=== PATIENT | female | born 1965 | race Caucasian/White ===

== ENCOUNTER 2024-06-02 15:55 | Emergency (ER) | payer OTHER, SELFPAY ==
[2024-06-02 16:00] VITALS: BP 160/84; PULSE 98; RESP 16; TEMP 36.3; O2SAT 99; BMI 20.5
--- NOTE | 2024-06-02 16:33 | ED_ITS ---
HPI - Back Pain/Injury <Fabby Caal PA-C - Last Filed: 06/02/24 19:22> General Chief Complaint: Back Pain/Injury Stated Complaint: lower back px t-7 Time Seen by Provider: 06/02/24 16:29 Source: patient History of Present Illness HPI Narrative: 58-year-old woman with a history of complete hysterectomy at age 53 and ?tummy tuck? presents with concern for bilateral flank pain/low back pains for about the past week. Patient states that she has been feeling fatigued and generally a little unwell. Today she says she has had almost no appetite had a tiny bit of food for breakfast. She has been feeling nauseous intermittently today. She has had 4 episodes of very loose stools/diarrhea which is ?not normal for me?. She states she has had 2 previous kidney infections, the last 1 a few years ago she says she did not have any symptoms other than low back pain. She denies any fevers but has been feeling chills on and off this week. She states no one else in the home has had diarrhea. She does not believe she ate any suspect food. She does not believe she did anything that would have caused any back strain or muscle injury. She states ?this does not feel like a muscle problem?. She does believe that the pain she has been having this past week feels similar to her most recent kidney infection. She denies dysuria, urgency, frequency, fevers, vomiting or other symptoms. Related Data Previous Rx's Medication Instructions Recorded amoxicillin 875 mg-potassium 1 tab PO Q12H pyelopnephritis 10 06/02/24 clavulanate 125 mg tablet days #20 tabs Allergies Allergy/AdvReac Type Severity Reaction Status Date / Time No Known Drug Allergies Allergy Verified 06/02/24 16:49 Review of Systems <Fabby Cala PA-C - Last Filed: 06/02/24 19:22> Review of Systems Narrative: See HPI Patient History <Fabby Caal PA-C - Last Filed: 06/02/24 19:22> Medical History (Updated 06/02/24 @ 19:08 by Fabby Caal PA-C) Acute appendicitis without peritonitis Urinary tract infection Surgical History Status post laparoscopic supracervical hysterectomy (05/09/16) Status post endometrial ablation History of third molar tooth extraction Exam <Fabby Caal PA-C - Last Filed: 06/02/24 19:22> Narrative Exam Narrative: GENERAL: [58] year old patient appears stated age. Well-developed patient, in mild distress, tired appearing. HEAD: Atraumatic. Normocephalic. EYES: Pupils equal round and reactive. Extraocular motions intact. No scleral icterus. No injection or drainage. ENT: Nose without bleeding, purulent drainage. Throat without erythema, tonsillar hypertrophy or exudate. Airway patent. NECK: Trachea midline. Non tender CARDIOVASCULAR: Regular rate and rhythm heart rate 98 without murmurs, gallops, or rubs. RESPIRATORY: Clear to auscultation. Breath sounds equal bilaterally. No wheezes, rales, or rhonchi. GASTROINTESTINAL: Abdomen soft, there is McBurney's point tenderness. Generalized tenderness of the abdomen. There is negative pain with heel tap, negative Rovsing. Negative obturator sign. No notable suprapubic tenderness, nondistended. EXTREMITIES: No edema or joint tenderness. BACK: Nontender without deformity or crepitance. No flank tenderness. NEURO: AOx3. SKIN: No rash or erythema of visible areas Initial Vital Signs Initial Vital Signs: Vital Signs Temperature 97.4 F L 06/02/24 16:00 Pulse Rate 98 H 06/02/24 16:00 Respiratory Rate 16 06/02/24 16:00 Blood Pressure 160/84 H 06/02/24 16:00 Pulse Oximetry 99 06/02/24 16:00 Oxygen Delivery Method Room Air 06/02/24 16:00 <My Hines DO - Last Filed: 06/03/24 07:30> Initial Vital Signs Initial Vital Signs: Vital Signs Temperature 97.4 F L 06/02/24 16:00 Pulse Rate 98 H 06/02/24 16:00 Respiratory Rate 16 06/02/24 16:00 Blood Pressure 160/84 H 06/02/24 16:00 Pulse Oximetry 99 06/02/24 16:00 Oxygen Delivery Method Room Air 06/02/24 16:00 Course <Fabby Caal PA-C - Last Filed: 06/02/24 19:22> Orders Ordered: Discontinued Medications Amoxicillin/Clavulanate Potassium (Amoxicillin/Clav 875/125 Mg) 1 tab PO NOW ONE Stop: 06/02/24 19:09 Last Admin: 06/02/24 19:12 Dose: 1 tab Documented By: JASWANT Ceftriaxone Sodium 1,000 mg/ (Sodium Chloride) 100 mls @ 200 mls/hr IV NOW ONE Stop: 06/02/24 18:15 Last Infusion: 06/02/24 19:02 Dose: Infused Documented By: Admin: 06/02/24 18:22 Dose: 200 mls/hr Documented By: JASWANT Sodium Chloride (Normal Saline 0.9%) 1,000 mls @ 500 mls/hr IV BOLUS ONE Stop: 06/02/24 20:14 Last Admin: 06/02/24 18:23 Dose: Not Given Documented By: JASWANT Sodium Chloride (Normal Saline 0.9%) 500 mls @ 1,000 mls/hr IV BOLUS ONE Stop: 06/02/24 18:51 Last Infusion: 06/02/24 19:02 Dose: Infused Documented By: Admin: 06/02/24 18:24 Dose: 1,000 mls/hr Documented By: JASWANT Consultations Consultation #1: Consulted Dr. Cisse, on-call general surgeon about this patient, he will come see her shortly. Advises do not start additional antibiotics ceftriaxone should be appropriate for both pyelonephritis and appendicitis. Recommends contacting hospitalist regarding admission. [id number] Cunningham who feels if the patient needs to come in the should come in under surgery. [address] Cisse, in person about this patient he states after reviewing her CT scan he actually does not feel this is a current appendicitis. Does note that she has some fat stranding and changes around her kidneys that are consistent with a kidney infection. Particularly on the right. 185 Vital Signs Vital signs: Vital Signs - 8 hr 06/02/24 16:00 Temperature 97.4 F L Pulse Rate 98 H Respiratory Rate 16 Blood Pressure 160/84 H Pulse Oximetry 99 Oxygen Delivery Method Room Air <My Hines, - Last Filed: 06/03/24 07:30> Orders Ordered: Discontinued Medications Amoxicillin/Clavulanate Potassium (Amoxicillin/Clav 875/125 Mg) 1 tab PO NOW ONE Stop: 06/02/24 19:09 Last Admin: 06/02/24 19:12 Dose: 1 tab Documented By: JASWANT Ceftriaxone Sodium 1,000 mg/ (Sodium Chloride) 100 mls @ 200 mls/hr IV NOW ONE Stop: 06/02/24 18:15 Last Infusion: 06/02/24 19:02 Dose: Infused Documented By: Admin: 06/02/24 18:22 Dose: 200 mls/hr Documented By: JASWANT Sodium Chloride (Normal Saline 0.9%) 1,000 mls @ 500 mls/hr IV BOLUS ONE Stop: 06/02/24 20:14 Last Admin: 06/02/24 18:23 Dose: Not Given Documented By: JASWANT Sodium Chloride (Normal Saline 0.9%) 500 mls @ 1,000 mls/hr IV BOLUS ONE Stop: 06/02/24 18:51 Last Infusion: 06/02/24 19:02 Dose: Infused Documented By: Admin: 06/02/24 18:24 Dose: 1,000 mls/hr Documented By: JASWANT Vital Signs Vital signs: Vital Signs - 8 hr 06/02/24 16:00 Temperature 97.4 F L Pulse Rate 98 H Respiratory Rate 16 Blood Pressure 160/84 H Pulse Oximetry 99 Oxygen Delivery Method Room Air MDM - Back Pain/Injury <Fabby Caal PA-C - Last Filed: 06/02/24 19:22> Differential Diagnosis Differential diagnosis: Likely pyelonephritis and other (UTI, appendicitis, colitis) Medical Records Attestation: I reviewed the patient's medical records. Lab Data Attestation: I reviewed the patient's lab results. 06/02/24 17:02 06/02/24 17:02 Labs: Lab Results 06/02/24 06/02/24 Range/Units 16:10 17:02 WBC 12.0 H (4.5-11.0) X10^3/uL RBC 3.98 L (4.0-5.2) X10^6/uL Hgb 12.0 (12.0-16.0) g/dL Hct 36.5 (36-46) % MCV 91.6 (80-100) fL MCH 30.2 (26-34) PG MCHC 33.0 (30-36) % RDW 13.7 (11.6-14.8) % Plt Count 310 (150-400) X10^3/uL Neut % (Auto) 79.4 H (50-75) % Lymph % (Auto) 13.6 L (25-40) % [place] % (Auto) 6.0 (3-14) % Eos % (Auto) 0.6 L (2-4) % Baso % (Auto) 0.4 (0-2) % Neut # (Auto) 9500 H (5545-5145) /uL Lymph # (Auto) 1600 (8172-7867) /uL [place] # (Auto) 700 (0-900) /uL Eos # (Auto) 100 (0-450) /uL Baso # (Auto) 100 (0-100) /uL Sodium 138 (137-145) mmol/L Potassium 3.6 (3.4-5.1) mmol/L Chloride 106 (98-107) mmol/L Carbon Dioxide 24 (22-32) mmol/L BUN 17 (7-17) mg/dL Creatinine 0.99 (0.52-1.04) mg/dL Estimated GFR > 60 (>60) mL/min BUN/Creatinine Ratio 17.2 (6-22) Glucose 89 (70-100) mg/dL Calcium 9.6 (8.4-10.2) mg/dL Total Bilirubin 0.6 (0.2-1.3) mg/dL AST 30 (14-36) IU/L ALT 19 (<35) IU/L Alkaline Phosphatase 51 (38-126) U/L Total Protein 7.0 (6.3-8.2) g/dL Albumin 4.3 (3.5-5.0) g/dL Globulin 2.7 (1.7-4.1) g/dL Albumin/Globulin Ratio 1.6 (1.0-2.8) Lipase 154 (23-300) U/L Urine RBC None seen (0-5/HPF) Urine WBC 5-10/hpf H (0-5/HPF) Ur Squamous Epith Cells None seen (0-5/HPF) Urine Bacteria Many (>30) H (None) Ur Culture Indicated? Specimen cultured Vol Urine Centrifuged 10ml (spun) Urine Dip Bedside Urine Glucose Negative Bedside Urine Bilirubin - Negative Bedside Urine Ketone ++ 40 Urine Specific [place] 1.010 Bedside Urine Occult Blood +/- Bedside Urine pH 6.5 Bedside Urine Protein +/- 15 Bedside Urine Urobilinogen - Negative Bedside Urine Nitrite - Negative Bedside Urine Leukocytes + [address] scan - abdomen/pelvis: My Impression: Agree with Radiology interpretation Radiologist's Impression: [address] [address] [address] Scan Report Signed Patient: Chary Rockwell MR#: [id number] : 1965 Acct:[id number] Age/Sex: 58 / F Date of Service: 06/02/24 Loc: ED Accession Number: [id number] Procedure: CT abdomen pelvis w con Ordering Provider: Fabby Caal PA-C PROCEDURE: CT ABDOMEN PELVIS W CON INDICATIONS: RLQ tenderness+Diarrhea/nausea hx complete hyster TECHNIQUE: After the administration of intravenous contrast, axial sections acquired from the lung bases to the pubic symphysis. Coronal and sagittal reformats were performed. For radiation dose reduction, the following was used: automated exposure control, adjustment of mA and/or kV according to patient size. COMPARISON: None. FINDINGS: Image quality: Diagnostic Lower chest: Unremarkable lung bases, normal heart size. Liver: Unremarkable Gallbladder and biliary system: Unremarkable, nondilated Pancreas: No ductal dilation Spleen: Nonenlarged Adrenals: No discrete nodules Kidneys: No solid mass. No hydronephrosis. Vessels and lymph nodes: The main portal vein is patent. No abdominal aortic aneurysm. No pathologic lymph nodes by size criteria Bowel and peritoneum: No evidence of small bowel obstruction or pathologic ascites. No drainable abscess is seen. [id number] diffuse distal colonic submucosal edema and wall thickening. The appendix measures 7-8 mm, with a small stone in the mid aspect (3/43). Body wall: Tiny fat containing umbilical hernia Pelvis: Bladder is unremarkable. Uterus is absent. Bones: There are degenerative changes. IMPRESSION: The appendix is borderline dilated, possibly with mucosal hyperemia and a small stone in the mid aspect. Findings are equivocal for early appendicitis. [id number]-yr-[id number] distal colonic inflammatory changes likely colitis. Superimposed diverticula are seen. Correlate with age-appropriate colonoscopy results. No small bowel obstruction. Other findings above. Dictated by: Feng Cross M.D. on 06/02/2024 at 18:25 Approved by: Feng Cross M.D. on 06/02/2024 at 18:29 [facility] Narrative Medical decision making narrative: This is a 58-year-old woman with a history of previous pyelonephritis presenting with concern for flank pain bilaterally worse on the right for about a week as well as nausea, reduced appetite and multiple episodes of diarrhea today. Exam is notable for moderate bilateral flank tenderness/CVA tenderness as well as right lower quadrant tenderness that is pronounced on exam. No other findings suggestive of appendicitis except for the right lower quadrant tenderness. Labs obtained for further evaluation reveal mild leukocytosis, urine dip is suggestive of a UTI. Discussed options with the patient and she is agreeable to CT scan for further evaluation for possible appendicitis, given that she has had nausea reduced appetite and diarrhea today also with right lower quadrant pain. CT returns with borderline appendix thickening and a small stone present mid appendix, read as equivocal for early appendicitis. Also with tmsm-uc-pggwoqwe diffuse colonic wall thickening. Contacted general surgeon regarding this patient who agrees to come and evaluate her. Contacted the hospitalist as well. Ultimately the general surgeon reviewed CT results and feels this does not represent an appendicitis. Does feel that imaging is consistent with kidney infection given some inflammation/fat stranding seen around the kidneys particularly the right. Patient has been afebrile, with only a mild leukocytosis and in the absence of appendicitis reasonable to treat her as an outpatient for pyelonephritis. Patient received ceftriaxone 1 g IV in the emergency department today, will send her out on Augmentin for 7 days which should treat both pyelonephritis and if this is an very early appendicitis will likely improve this as well. She is advised to monitor for new or worsening symptoms such as fevers, persistent chills, persistent diarrhea, vomiting, new or worsening abdominal pain or other symptoms of concern and seek re-evaluation if these develop. Return precautions provided, follow-up plan discussed, all questions answered. <My Hines, DO - Last Filed: 06/03/24 07:30> Lab Data Labs: Lab Results 06/02/24 06/02/24 Range/Units 16:10 17:02 WBC 12.0 H (4.5-11.0) X10^3/uL RBC 3.98 L (4.0-5.2) X10^6/uL Hgb 12.0 (12.0-16.0) g/dL Hct 36.5 (36-46) % MCV 91.6 (80-100) fL MCH 30.2 (26-34) PG MCHC 33.0 (30-36) % RDW 13.7 (11.6-14.8) % Plt Count 310 (150-400) X10^3/uL Neut % (Auto) 79.4 H (50-75) % Lymph % (Auto) 13.6 L (25-40) % [place] % (Auto) 6.0 (3-14) % Eos % (Auto) 0.6 L (2-4) % Baso % (Auto) 0.4 (0-2) % Neut # (Auto) 9500 H (2340-0075) /uL Lymph # (Auto) 1600 (1829-7960) /uL [place] # (Auto) 700 (0-900) /uL Eos # (Auto) 100 (0-450) /uL Baso # (Auto) 100 (0-100) /uL Sodium 138 (137-145) mmol/L Potassium 3.6 (3.4-5.1) mmol/L Chloride 106 (98-107) mmol/L Carbon Dioxide 24 (22-32) mmol/L BUN 17 (7-17) mg/dL Creatinine 0.99 (0.52-1.04) mg/dL Estimated GFR > 60 (>60) mL/min BUN/Creatinine Ratio 17.2 (6-22) Glucose 89 (70-100) mg/dL Calcium 9.6 (8.4-10.2) mg/dL Total Bilirubin 0.6 (0.2-1.3) mg/dL AST 30 (14-36) IU/L ALT 19 (<35) IU/L Alkaline Phosphatase 51 (38-126) U/L Total Protein 7.0 (6.3-8.2) g/dL Albumin 4.3 (3.5-5.0) g/dL Globulin 2.7 (1.7-4.1) g/dL Albumin/Globulin Ratio 1.6 (1.0-2.8) Lipase 154 (23-300) U/L Urine RBC None seen (0-5/HPF) Urine WBC 5-10/hpf H (0-5/HPF) Ur Squamous Epith Cells None seen (0-5/HPF) Urine Bacteria Many (>30) H (None) Ur Culture Indicated? Specimen cultured Vol Urine Centrifuged 10ml (spun) Urine Dip Bedside Urine Glucose Negative Bedside Urine Bilirubin - Negative Bedside Urine Ketone ++ 40 Urine Specific [place] 1.010 Bedside Urine Occult Blood +/- Bedside Urine pH 6.5 Bedside Urine Protein +/- 15 Bedside Urine Urobilinogen - Negative Bedside Urine Nitrite - Negative Bedside Urine Leukocytes + 70 Esterase Discharge Plan Departure Patient Disposition: Home Clinical Impression: Pyelonephritis, Colitis Activity Restrictions/Additional Instructions: *You have been diagnosed with [pyelonephritis/complicated UTI, colitis + equivocal findings/borderline appendiceal thickening.] *What to do: *Please continue to take your regular medications as directed. [1 ] New medication prescriptions sent to your pharmacy: [ ] [ ] New medication written as a paper prescription [ ] No new medications given *Please follow up with your primary care provider in 2-3 days, call for an appointment. Let them know you were seen in the Emergency Department and that we ask that you be seen in follow up. We will electronically transmit a record of today's note if your PCP is in our system. You came in today with concern for possible kidney infection. Your urine was suspicious for UTI new did have some tenderness over her kidneys. You also had some tenderness over her right low abdomen concerning for possible appendicitis. We obtained labs and you had a mild increased white count. After discussion ultimately we did also obtain a CT scan to evaluate for appendicitis. Initially some concern for appendicitis based on the radiology read. However the general surgeon also evaluated the CT and you and feels that this is not represent a appendicitis. CT was consistent with pyelonephritis as certainly it was your history exam and urine is also suggestive of this. That said if you develop new symptoms over the next few days to week such as new worsening right lower quadrant abdominal pain or generalized abdominal pain, persistent diarrhea or nausea vomiting please make sure you get re-evaluated. You had ceftriaxone today in the emergency department which should jump start treatment for UTI and help if you do have a early appendicitis. Placing you on oral antibiotics Augmentin for 10 days please take these as prescribed. Recommend Tylenol and ibuprofen as needed for pain. You may want to eat yogurt or take probiotics while you are on antibiotics. I hope you feel better soon. *If you do not have a primary care provider please contact the [facility] Resource line at [phone]. They will ask some questions about your medical history and help get you set up with a doctor in the community. *Return to Emergency Department if you should have any new, worsening or concerning symptoms, such as [fever greater than 101 F, shaking chills, worsening pain, persistent vomiting or other bothersome symptoms] Prescriptions: New amoxicillin-pot clavulanate 875-125 mg tablet 1 tab PO Q12H 10 Days Qty: 20 0RF Stand Alone Forms: Patient Portal/API/Survey ED Sign-out <My Hines, - Last Filed: 06/03/24 07:30> Cosign ED Attending Cosignature Attestation: I was available for consultation.
[2024-06-02 17:04] LABS: Bacteria Urine Many (>30); Culture Indicated Urine Specimen Cultured; RBC Urine None Seen (0-5/HPF); Squamous Epithelial Cell Urine None Seen (0-5/HPF); Urine Volume 10mL (spun); WBC Urine 5-10/HPF (0-5/HPF)
[2024-06-02 17:12] LABS: Add Manual Diff / Slide Review NO; Basophils Absolute Auto 100 /uL (0-100); Basophils Percent Auto 0.4 % (0-2); Eosinophils Absolute Auto 100 /uL (0-450); Eosinophils Percent Auto 0.6 % (2-4); Hematocrit 36.5 % (36-46); Lymphocytes Absolute Auto 1600 /uL (1100-4500); Lymphocytes Percent Auto 13.6 % (25-40); Mean Corpuscular Hemoglobin 30.2 PG (26-34); Mean Corpuscular Volume 91.6 fL (80-100); Monocytes Absolute Auto 700 /uL (0-900); Neutrophils Absolute Auto 9500 /uL (1500-7000); Neutrophils Percent Auto 79.4 % (50-75); Platelet Count 310 X10^3/uL (150-400); Red Blood Cell Count 3.98 X10^6/uL (4.0-5.2); Red Cell Distribution Width 13.7 % (11.6-14.8)
[2024-06-02 17:22] LABS: Alanine Aminotransferase 19 IU/L (<35); Albumin 4.3 g/dL (3.5-5.0); Albumin Globulin Ratio 1.6 (1.0-2.8); Alkaline Phosphatase 51 U/L (38-126); Aspartate Aminotransferase 30 IU/L (14-36); BUN Creatinine Ratio 17.2 (6-22); Bilirubin Total 0.6 mg/dL (0.2-1.3); Blood Urea Nitrogen 17 mg/dL (7-17); Calcium 9.6 mg/dL (8.4-10.2); Carbon Dioxide 24 mmol/L (22-32); Chloride 106 mmol/L (98-107); Estimated Glomerular Filt Rate > 60 mL/min (>60); Globulin 2.7 g/dL (1.7-4.1); Glucose 89 mg/dL (70-100); HEMOLYSIS < 15 (0-50); Lipase 154 U/L (23-300); Potassium 3.6 mmol/L (3.4-5.1); Sodium 138 mmol/L (137-145)
--- NOTE | 2024-06-02 17:33 | DI.CT.S_ITS ---
PROCEDURE: CT ABDOMEN PELVIS W CON INDICATIONS: RLQ tenderness+Diarrhea/nausea hx complete hyster TECHNIQUE: After the administration of intravenous contrast, axial sections acquired from the lung bases to the pubic symphysis. Coronal and sagittal reformats were performed. For radiation dose reduction, the following was used: automated exposure control, adjustment of mA and/or kV according to patient size. COMPARISON: None. FINDINGS: Image quality: Diagnostic Lower chest: Unremarkable lung bases, normal heart size. Liver: Unremarkable Gallbladder and biliary system: Unremarkable, nondilated Pancreas: No ductal dilation Spleen: Nonenlarged Adrenals: No discrete nodules Kidneys: No solid mass. No hydronephrosis. Vessels and lymph nodes: The main portal vein is patent. No abdominal aortic aneurysm. No pathologic lymph nodes by size criteria Bowel and peritoneum: No evidence of small bowel obstruction or pathologic ascites. No drainable abscess is seen. Sxqy-ln-rscskyns diffuse distal colonic submucosal edema and wall thickening. The appendix measures 7-8 mm, with a small stone in the mid aspect (3/43). Body wall: Tiny fat containing umbilical hernia Pelvis: Bladder is unremarkable. Uterus is absent. Bones: There are degenerative changes. IMPRESSION: The appendix is borderline dilated, possibly with mucosal hyperemia and a small stone in the mid aspect. Findings are equivocal for early appendicitis. Jeho-un-cpsgojwr distal colonic inflammatory changes likely colitis. Superimposed diverticula are seen. Correlate with age-appropriate colonoscopy results. No small bowel obstruction. Other findings above. Dictated by: eFng Cross M.D. on 06/02/2024 at 18:25 Approved by: Feng Cross M.D. on 06/02/2024 at 18:29
[2024-06-02] MEDS: cefTRIAXone 1,000 MG in SODIUM CHLORIDE 0.9% 100 ML 200 MG IV (18:22)
[2024-06-02] MEDS: SODIUM CHLORIDE 0.9% 500 ML 1000 ML IV (18:24)
--- NOTE | 2024-06-02 18:58 | P.HP_ITS ---
History of Present Illness History of Present Illness Date Patient Seen: 06/02/24 Time Patient Seen: 18:58 Date of Onset of Symptoms: 05/26/24 Chief complaint: lower back px t-7 Narrative: 58 year old WF with right flank/back pain for 1 week. Presented to the ER as it was not improving. She has had UTI/pyelo in the past. She is otherwise healthy. She had some nausea, but no other GI symptoms. [facility] Medical History (Updated 06/02/24 @ 19:02 by Lev Cisse MD) Acute appendicitis without peritonitis Urinary tract infection Surgical History Status post laparoscopic supracervical hysterectomy (05/09/16) Status post endometrial ablation History of third molar tooth extraction Meds Home Medications and Allergies Home Medications Medication Instructions Recorded Confirmed Type amoxicillin 875 mg-potassium 1 tab PO Q12H pyelopnephritis 10 06/02/24 Rx clavulanate 125 mg tablet days #20 tabs Allergies Allergy/AdvReac Type Severity Reaction Status Date / Time No Known Drug Allergies Allergy Verified 06/02/24 16:49 Review of Systems Review of Systems ROS: Yes All systems reviewed with the patient and are negative except as otherwise documented Gastrointestinal Gastrointestinal: Reports as per HPI, Denies bloating, Denies change in bowel habits, Denies loose stools and Denies vomiting Exam Vital Signs (past 8 hours): - 06/02/24 16:00 Temperature 97.4 F L Pulse Rate 98 H Respiratory Rate 16 Blood Pressure 160/84 H Pulse Oximetry 99 Oxygen Delivery Method Room Air Oxygen Delivery Method Room Air Const General: cooperative, healthy appearing and comfortable Orientation: alert, awake and oriented x3 HENMT Head: normal to inspection Eyes General: appearance normal, both eyes and all related structures Neck Neck: normal visual inspection and full ROM Chest Chest: normal inspection of the chest Resp Effort & Inspection: normal respiratory effort Cardio Rate: regular rate GI Palpation: soft, No firm, No guarding, No hernia, No rigid and tender (mild right flank and right lower quadrant tenderness.) Objective Labs 06/02/24 17:02 06/02/24 17:02 Labs: Laboratory Results - last 24 hr 06/02/24 06/02/24 16:10 17:02 WBC 12.0 H RBC 3.98 L Hgb 12.0 Hct 36.5 MCV 91.6 MCH 30.2 MCHC 33.0 RDW 13.7 Plt Count 310 Neut % (Auto) 79.4 H Lymph % (Auto) 13.6 L [place] % (Auto) 6.0 Eos % (Auto) 0.6 L Baso % (Auto) 0.4 Neut # (Auto) 9500 H Lymph # (Auto) 1600 [place] # (Auto) 700 Eos # (Auto) 100 Baso # (Auto) 100 Sodium 138 Potassium 3.6 Chloride 106 Carbon Dioxide 24 BUN 17 Creatinine 0.99 Estimated GFR > 60 BUN/Creatinine Ratio 17.2 Glucose 89 Calcium 9.6 Total Bilirubin 0.6 AST 30 ALT 19 Alkaline Phosphatase 51 Total Protein 7.0 Albumin 4.3 Globulin 2.7 Albumin/Globulin Ratio 1.6 Lipase 154 Urine RBC None seen Urine WBC 5-10/hpf H Ur Squamous Epith Cells None seen Urine Bacteria Many (>30) H Ur Culture Indicated? Specimen cultured Vol Urine Centrifuged 10ml (spun) Assessment & Plan Assessment and plan (1) Urinary tract infection: Status: Acute (2) Acute appendicitis without peritonitis: Status: Acute Assessment & Plan narrative: I independently reviewed the CT scan which showed some hyperemia and perinephric stranding on the right inferior pole of the kidney, as well as some hyperemia without fat standing, free fluid, or perforation of the appendix. I explained to the patient that she may have one, or both, a UTI and an early appendicitis. I explained to her and her that with 7 days of mild symptoms, it is unlikely that her appendix would perforate and she has an 80% chance of improvement of her appendix symptoms with antibiotics, alone. Regardless, would recommend antibiotics for the UTI, and cultures are pending. D/W MILAD AUGUSTE. She states that the hospitalist states that her UTI does not warrant admission. As such, I recommend 10 days of Augmentin to treat both conditions. If the cultures grow something that isn't covered by the Augmentin, she would need to seek alternative antibiotics. I explained to her that if her right lower quadrant pain worsens, she develops fevers, chills, emesis, that she should return for a repeat CT scan, as she may require laparoscopic appendectomy. Time-Based Coding :: [TOTAL MINUTES] spent with patient and on the chart (including review of chart, obtaining history, exam, reviewing outside data, placing orders, documenting exam and treatment plan, and counseling patient) on [DATE]. PROFEE Charge Codes Initial inpatient/observation care: [id number]
[2024-06-02] MEDS: AMOXICILLIN/CLAV 875/125 MG 1 TAB PO (19:12)
[2024-06-02 19:16] VITALS: BP 133/64; PULSE 89; RESP 16; O2SAT 98
== END 2024-06-02 19:16 | disposition home or self-care (01) ==
PROVIDERS: Emergency Medicine; Emergency Provider Student in an Organized Health Care Education/Training Program
DX: N12 Tubulo-interstitial nephritis, not specified as acute or chronic (principal); K52.9 Noninfective gastroenteritis and colitis, unspecified
CPT/HCPCS: 36415; 74177; 80053; 81003; 81015; 83690; 85025; 87077; 87086; 87186; 96365; 99284; J0696; Q9967

== ENCOUNTER 2024-06-07 09:58 | Emergency (ER) | payer OTHER, SELFPAY ==
[2024-06-07] VITALS (7 sets, daily range): BP systolic 108–141; BP diastolic 67–95; PULSE 81–104; RESP 17–24; TEMP 36.4–36.7; O2SAT 99–100; BMI 20.5
[2024-06-07 10:25] LABS: Appearance Urine UA CLEAR; Bilirubin Urine UA NEGATIVE (NEGATIVE); Color Urine UA YELLOW; Glucose Urine UA NEGATIVE (Negative); Ketones Urine UA TRACE (NEGATIVE); Leukocyte Esterase Urine UA NEGATIVE (NEGATIVE); Nitrite Urine UA NEGATIVE (Negative); Occult Blood Urine UA NEGATIVE (Negative); Protein Urine UA NEGATIVE (Negative); Specific Gravity Urine UA <=1.005 (1.000-1.035); Urine Volume 10mL (spun); Urobilinogen Urine UA 0.2 E.U./dL (0.2)
[2024-06-07 10:27] LABS: Bacteria Urine None Seen; Culture Indicated Urine Cult Not Indicated; RBC Urine None Seen (0-5/HPF); Squamous Epithelial Cell Urine None Seen (0-5/HPF); WBC Urine None Seen (0-5/HPF)
--- NOTE | 2024-06-07 10:37 | ED_ITS ---
HPI - Abdominal Pain General Chief Complaint: Urogenital-Female Stated Complaint: back px Time Seen by Provider: 06/07/24 10:29 Source: patient Mode of arrival: Ambulatory History of Present Illness HPI narrative: 58-year-old female has right-sided abdominal pain and flank pain, currently on oral Augmentin for possible urinary tract infection, seen here ED 06/02/2024, having CT abdominopelvic imaging at that time showing equivocal findings for appendicitis per patient, ultimately diagnosed with urinary tract infection, given IV ceftriaxone antibiotic, but discharged on Augmentin for possible appendicitis coverage, General surgery was consulted during that visit and did not feel that appendicitis was likely at that time. She has been taking her Augmentin antibiotic, felt better the next couple of days, now with increasing right-sided abdominal pain, also some blood in urine as well. No nausea or vomiting. Related Data Previous Rx's Medication Instructions Recorded amoxicillin 875 mg-potassium 1 tab PO Q12H pyelopnephritis 10 06/02/24 clavulanate 125 mg tablet days #20 tabs cefdinir 300 mg capsule 300 mg PO BID 10 days #20 caps 06/07/24 Allergies Allergy/AdvReac Type Severity Reaction Status Date / Time No Known Drug Allergies Allergy Verified 06/07/24 10:14 Patient History Medical History (Updated 06/07/24 @ 12:23 by Kemal Garcia MD) Acute appendicitis without peritonitis Urinary tract infection Surgical History Status post laparoscopic supracervical hysterectomy (05/09/16) Status post endometrial ablation History of third molar tooth extraction Social History Smoking Status: Unknown if ever smoked Smoking Status: Unknown if ever smoked Exam Narrative Exam Narrative: GENERAL: Well-developed patient, in mild distress. HEAD: Atraumatic. Normocephalic. EYES: Pupils equal round and reactive. Extraocular motions intact. No scleral icterus. No injection or drainage. ENT: Nose without bleeding, purulent drainage. Throat without erythema, tonsillar hypertrophy or exudate. Airway patent. NECK: Trachea midline. Non tender CARDIOVASCULAR: Regular rate and rhythm without murmurs, gallops, or rubs. RESPIRATORY: Clear to auscultation. Breath sounds equal bilaterally. No wheezes, rales, or rhonchi. GASTROINTESTINAL: Abdomen soft, non-tender, nondistended. EXTREMITIES: No edema or joint tenderness. BACK: Nontender without deformity or crepitance. No flank tenderness. NEURO: AOx3. Motor functions grossly nonfocal SKIN: No rash or erythema of visible areas Initial Vital Signs Initial Vital Signs: Vital Signs Temperature 97.5 F L 06/07/24 10:00 Pulse Rate 98 H 06/07/24 10:00 Respiratory Rate 17 06/07/24 10:00 Blood Pressure 129/95 H 06/07/24 10:00 Pulse Oximetry 100 06/07/24 10:00 Oxygen Delivery Method Room Air 06/07/24 10:00 Course Orders Ordered: Discontinued Medications Sodium Chloride (Normal Saline 0.9%) 1,000 mls @ 1,000 mls/hr IV BOLUS ONE Stop: 06/07/24 12:24 Last Infusion: 06/07/24 12:29 Dose: Infused Documented By: Admin: 06/07/24 11:33 Dose: 1,000 mls/hr Documented By: PIO Ceftriaxone Sodium 1,000 mg/ (Sodium Chloride) 100 mls @ 200 mls/hr IV NOW ONE Stop: 06/07/24 11:26 Last Infusion: 06/07/24 12:09 Dose: Infused Documented By: Admin: 06/07/24 11:33 Dose: 200 mls/hr Documented By: PIO Ketorolac Tromethamine (Ketorolac 30 Mg/Ml Vial) 15 mg IV NOW ONE Stop: 06/07/24 10:41 Last Admin: 06/07/24 10:51 Dose: 15 mg Documented By: RUDI Vital Signs Vital signs: Vital Signs - 8 hr 06/07/24 12:44 Temperature 98.1 F Pulse Rate 81 Respiratory Rate 18 Blood Pressure 141/69 H Pulse Oximetry 100 Oxygen Delivery Method Room Air MDM - Abdominal Pain Lab Data Attestation: I reviewed the patient's lab results. Lab results narrative: White blood cell count 6700, hemoglobin 13.5, platelets adequate. Basic metabolic panel normal. Liver functions normal. Urinalysis negative. 06/07/24 10:20 06/07/24 10:20 Labs: Lab Results 06/07/24 06/07/24 Range/Units 10:15 10:20 WBC 6.7 (4.5-11.0) X10^3/uL RBC 4.46 (4.0-5.2) X10^6/uL Hgb 13.5 (12.0-16.0) g/dL Hct 40.5 (36-46) % MCV 90.9 (80-100) fL MCH 30.3 (26-34) PG MCHC 33.4 (30-36) % RDW 13.3 (11.6-14.8) % Plt Count 352 (150-400) X10^3/uL Neut % (Auto) 63.5 (50-75) % Lymph % (Auto) 28.0 (25-40) % [place] % (Auto) 5.6 (3-14) % Eos % (Auto) 1.8 L (2-4) % Baso % (Auto) 1.1 (0-2) % Neut # (Auto) 4300 (6866-4176) /uL Lymph # (Auto) 1900 (8083-3230) /uL [place] # (Auto) 400 (0-900) /uL Eos # (Auto) 100 (0-450) /uL Baso # (Auto) 100 (0-100) /uL Sodium 139 (137-145) mmol/L Potassium 3.4 (3.4-5.1) mmol/L Chloride 105 (98-107) mmol/L Carbon Dioxide 22 (22-32) mmol/L BUN 11 (7-17) mg/dL Creatinine 0.73 (0.52-1.04) mg/dL Estimated GFR > 60 (>60) mL/min BUN/Creatinine Ratio 15.1 (6-22) Glucose 94 (70-100) mg/dL Calcium 9.7 (8.4-10.2) mg/dL Total Bilirubin 0.6 (0.2-1.3) mg/dL AST 35 (14-36) IU/L ALT 25 (<35) IU/L Alkaline Phosphatase 66 (38-126) U/L Total Protein 7.9 (6.3-8.2) g/dL Albumin 4.7 (3.5-5.0) g/dL Globulin 3.2 (1.7-4.1) g/dL Albumin/Globulin Ratio 1.5 (1.0-2.8) Urine Color Yellow Urine Appearance Clear Urine pH 7.0 (4.5-8.0) Ur Specific [place] <=1.005 (1.000-1.035) Urine Protein Negative (Negative) Urine Glucose (UA) Negative (Negative) g/dL Urine Ketones Trace H (NEGATIVE) Urine Occult Blood Negative (Negative) Urine Nitrate Negative (Negative) Urine Bilirubin Negative (NEGATIVE) Urine Urobilinogen 0.2 (0.2) E.U./dL Ur Leukocyte Esterase Negative (NEGATIVE) Urine RBC None seen (0-5/HPF) Urine WBC None seen (0-5/HPF) Ur Squamous Epith Cells None seen (0-5/HPF) Urine Bacteria None seen (None) Ur Culture Indicated? Cult not indicated Vol Urine Centrifuged 10ml (spun) Imaging Data CT scan - abdomen/pelvis: Radiologist's Impression: Close Abdomen/Pelvis CT (Signed) Amrit Heard - 06/07/24 Launch?[place] [address] CT Scan Report Signed Patient: Chary Rockwell MR#: [id number] : 1965 Acct:[id number] Age/Sex: 58 / F Date of Service: 06/07/24 Loc: ED Accession Number: [id number] Procedure: CT abdomen pelvis w con Ordering Provider: Kemal Garcia MD PROCEDURE: CT ABDOMEN PELVIS W CON INDICATIONS: compare to 06/02, pyelo vs appy, on oral abx TECHNIQUE: After the administration of intravenous contrast, axial sections acquired from the lung bases to the pubic symphysis. Coronal and sagittal reformats were performed. For radiation dose reduction, the following was used: automated exposure control, adjustment of mA and/or kV according to patient size. COMPARISON: [facility], CT, CT ABDOMEN PELVIS W CON, 06/02/2024, 17:36. FINDINGS: Image quality: Diagnostic. Lower Chest: No significant findings. ABDOMEN: Liver: No solid mass. Gallbladder: No radiopaque gallstones or wall thickening. Biliary ducts: No biliary dilation. Pancreas: No ductal dilation. Spleen: Size is within normal limits. Adrenal Glands: No adrenal nodules. Kidneys and Ureters: No hydronephrosis. No solid mass. No complex renal cystic lesion which requires follow up. Stomach and Bowel: Normal colonic caliber, without significant wall thickening. Appendix appears normal. No definite dilatation or surrounding inflammation. Peritoneum: No abnormal intraperitoneal fluid. No free air. Ventral Wall: No significant ventral hernia. Abdominal Nodes: No retroperitoneal or mesenteric adenopathy by size criteria. Vessels: Aorta and inferior vena cava are normal in size. PELVIS: Pelvic Organs: Unremarkable. Bladder: No bladder wall thickening, accounting for underdistention. Pelvic Nodes: No enlarged lymph nodes. Miscellaneous: No inguinal hernias are seen. Bones: No aggressive osseous abnormality. IMPRESSION: 1. No acute findings within the abdomen or pelvis. Appendix appears normal. No significant dilatation or surrounding inflammation. 2. Kidneys are normal in appearance. No evidence of pyelonephritis. Dictated by: Amrit Heard M.D. on 06/07/2024 at 11:57 Approved by: Amrit Heard M.D. on 06/07/2024 at 12:06 [facility] Narrative Medical decision making narrative: 58-year-old female with right-sided abdominal flank pain, seen here 06/02/2024 with diagnosis urinary tract infection, equivocal imaging at that time for appendicitis, apparently there was an appendicolith present, surgery was consulted, did not feel there is an acute appendicitis at that time, was discharged home on oral course Augmentin after IV Rocephin dose, felt initially better, now worsening last couple of days with increasing pain. No nausea or vomiting. Afebrile, sirs screen negative on triage. Anticipate repeat imaging to evaluate for appendicitis, patient agrees. Microbiology lab review, 06/02/2024 urine culture, showed greater than 100,000 colonies E coli. Intermediate sensitivity to Augmentin. Resistant to ampicillin, Unasyn, sulfa/trimethoprim. Sensitive to cephalosporins, ciprofloxacin, levofloxacin, nitrofurantoin. We will give IV ceftriaxone dose while here, which should help with urinary tract infection, which may be inadequately treated due to intermediate sensitivity to Augmentin. CT abdomen and pelvis ordered, results pending. CT abdomen and pelvis shows normal-appearing appendix, also no acute changes in the renal system noted. See radiology report. Copy of report given to patient, appendix not of concern at this time per radiology report. We will continue further treatment of urinary tract infection, which had been intermediate least sensitive only to Augmentin. We will consider today day one, and give cefdinir new cephalosporin course of antibiotics. Antibiotic prescription sent to her pharmacy. Follow up with her doctor early next week advised. She declines pain medications at this time, we will take [id number] ibuprofen if needed. Discharged home with , improved/stable Discharge Plan Departure Patient Disposition: Home Clinical Impression: Urinary tract infection, Flank pain Activity Restrictions/Additional Instructions: Right-sided back/abdominal discomfort, recent CT diagnosis showed the presence of appendix with appendicolith, but no inflammatory changes around the appendix, treated with IV ceftriaxone on previous visit for possible urinary tract infection, urine culture in fact did show presence of bacteria E coli which unfortunately was only intermediately sensitive to Augmentin that was prescribed orally for outpatient from previous discharge. You felt initially better and then worse again. No fever on triage here. Repeat CT scanning abdomen and pelvis here shows normal appendix per Radiology report, also no acute changes in the kidney, nor elsewhere in the abdominopelvic region. Repeat dose IV ceftriaxone antibiotic given, noting the coli bacteria were sensitive to cephalosporins. We will give cefdinir antibiotic to take for 10 day course. Recheck with your regular doctor early next week. Drink plenty of fluids. Take Tylenol and or Motrin as needed for discomfort. You declined any other pain medications for now. Return to this/nearest emergency department for any change worsening symptoms or any concerns prior Discontinue the Augmentin antibiotic, if you have any further tablets left from that original prescription. Prescriptions: New cefdinir 300 mg capsule 300 mg PO BID 10 Days Qty: 20 0RF No Action amoxicillin-pot clavulanate 875-125 mg tablet 1 tab PO Q12H 10 Days Qty: 20 0RF Stand Alone Forms: Patient Portal/API/Survey
[2024-06-07 10:39] LABS: Add Manual Diff / Slide Review NO; Basophils Absolute Auto 100 /uL (0-100); Basophils Percent Auto 1.1 % (0-2); Eosinophils Absolute Auto 100 /uL (0-450); Eosinophils Percent Auto 1.8 % (2-4); Hematocrit 40.5 % (36-46); Hemoglobin 13.5 g/dL (12.0-16.0); Lymphocytes Absolute Auto 1900 /uL (1100-4500); Mean Corpuscular HGB Conc 33.4 % (30-36); Mean Corpuscular Hemoglobin 30.3 PG (26-34); Mean Corpuscular Volume 90.9 fL (80-100); Monocytes Absolute Auto 400 /uL (0-900); Monocytes Percent Auto 5.6 % (3-14); Neutrophils Absolute Auto 4300 /uL (1500-7000); Neutrophils Percent Auto 63.5 % (50-75); Platelet Count 352 X10^3/uL (150-400); Red Blood Cell Count 4.46 X10^6/uL (4.0-5.2); Red Cell Distribution Width 13.3 % (11.6-14.8); White Blood Cell Count 6.7 X10^3/uL (4.5-11.0)
--- NOTE | 2024-06-07 10:40 | DI.CT.S_ITS ---
PROCEDURE: CT ABDOMEN PELVIS W CON INDICATIONS: compare to 06/02, pyelo vs appy, on oral abx TECHNIQUE: After the administration of intravenous contrast, axial sections acquired from the lung bases to the pubic symphysis. Coronal and sagittal reformats were performed. For radiation dose reduction, the following was used: automated exposure control, adjustment of mA and/or kV according to patient size. COMPARISON: [facility], CT, CT ABDOMEN PELVIS W CON, 06/02/2024, 17:36. FINDINGS: Image quality: Diagnostic. Lower Chest: No significant findings. ABDOMEN: Liver: No solid mass. Gallbladder: No radiopaque gallstones or wall thickening. Biliary ducts: No biliary dilation. Pancreas: No ductal dilation. Spleen: Size is within normal limits. Adrenal Glands: No adrenal nodules. Kidneys and Ureters: No hydronephrosis. No solid mass. No complex renal cystic lesion which requires follow up. Stomach and Bowel: Normal colonic caliber, without significant wall thickening. Appendix appears normal. No definite dilatation or surrounding inflammation. Peritoneum: No abnormal intraperitoneal fluid. No free air. Ventral Wall: No significant ventral hernia. Abdominal Nodes: No retroperitoneal or mesenteric adenopathy by size criteria. Vessels: Aorta and inferior vena cava are normal in size. PELVIS: Pelvic Organs: Unremarkable. Bladder: No bladder wall thickening, accounting for underdistention. Pelvic Nodes: No enlarged lymph nodes. Miscellaneous: No inguinal hernias are seen. Bones: No aggressive osseous abnormality. IMPRESSION: 1. No acute findings within the abdomen or pelvis. Appendix appears normal. No significant dilatation or surrounding inflammation. 2. Kidneys are normal in appearance. No evidence of pyelonephritis. Dictated by: Amrit Heard M.D. on 06/07/2024 at 11:57 Approved by: Amrit Heard M.D. on 06/07/2024 at 12:06
[2024-06-07 10:50] LABS: Alanine Aminotransferase 25 IU/L (<35); Albumin 4.7 g/dL (3.5-5.0); Albumin Globulin Ratio 1.5 (1.0-2.8); Alkaline Phosphatase 66 U/L (38-126); Aspartate Aminotransferase 35 IU/L (14-36); BUN Creatinine Ratio 15.1 (6-22); Bilirubin Total 0.6 mg/dL (0.2-1.3); Blood Urea Nitrogen 11 mg/dL (7-17); Calcium 9.7 mg/dL (8.4-10.2); Carbon Dioxide 22 mmol/L (22-32); Chloride 105 mmol/L (98-107); Estimated Glomerular Filt Rate > 60 mL/min (>60); Globulin 3.2 g/dL (1.7-4.1); Glucose 94 mg/dL (70-100); HEMOLYSIS < 15 (0-50); Potassium 3.4 mmol/L (3.4-5.1); Sodium 139 mmol/L (137-145); Total Protein 7.9 g/dL (6.3-8.2)
[2024-06-07] MEDS: KETOROLAC 30 MG/ML VIAL 15 MG IV (10:51)
[2024-06-07] MEDS: SODIUM CHLORIDE 0.9% 1,000 ML 1000 ML IV (11:33)
[2024-06-07] MEDS: cefTRIAXone 1,000 MG in SODIUM CHLORIDE 0.9% 100 ML 200 MG IV (11:33)
== END 2024-06-07 12:45 | disposition home or self-care (01) ==
PROVIDERS: Emergency Provider Emergency Medicine
DX: N39.0 Urinary tract infection, site not specified (principal); R10.9 Unspecified abdominal pain
CPT/HCPCS: 36415; 74177; 80053; 81001; 85025; 96365; 96375; 99284; J0696; J1885; Q9967

== ENCOUNTER 2024-10-20 09:12 | Emergency (ER) | payer OTHER, SELFPAY ==
[2024-10-20] VITALS (15 sets, daily range): BP systolic 125–163; BP diastolic 69–91; PULSE 97–112; RESP 20; TEMP 36.9; O2SAT 93–100; BMI 20.5
[2024-10-20 09:58] LABS: Add Manual Diff / Slide Review NO; Basophils Absolute Auto 100 /uL (0-100); Basophils Percent Auto 0.4 % (0-2); Eosinophils Absolute Auto 0 /uL (0-450); Eosinophils Percent Auto 0.2 % (2-4); Hematocrit 37.9 % (36-46); Hemoglobin 12.6 g/dL (12.0-16.0); Lymphocytes Absolute Auto 1000 /uL (1100-4500); Lymphocytes Percent Auto 7.1 % (25-40); Mean Corpuscular HGB Conc 33.2 % (30-36); Mean Corpuscular Hemoglobin 29.9 PG (26-34); Mean Corpuscular Volume 89.9 fL (80-100); Monocytes Absolute Auto 1000 /uL (0-900); Monocytes Percent Auto 6.6 % (3-14); Neutrophils Absolute Auto 12400 /uL (1500-7000); Neutrophils Percent Auto 85.7 % (50-75); Platelet Count 339 X10^3/uL (150-400); Red Blood Cell Count 4.22 X10^6/uL (4.0-5.2); Red Cell Distribution Width 13.9 % (11.6-14.8); White Blood Cell Count 14.4 X10^3/uL (4.5-11.0)
[2024-10-20] MEDS: ONDANSETRON 4 MG/2 ML INJ IV (09:58)
[2024-10-20 10:00] LABS: Appearance Urine UA SL CLOUDY; Bilirubin Urine UA 1+ (NEGATIVE); Color Urine UA YELLOW; Glucose Urine UA NEGATIVE (Negative); Ketones Urine UA TRACE (NEGATIVE); Leukocyte Esterase Urine UA 1+ (NEGATIVE); Nitrite Urine UA NEGATIVE (Negative); Occult Blood Urine UA NEGATIVE (Negative); Protein Urine UA NEGATIVE (Negative)
[2024-10-20] MEDS: HYDROMORPHONE 0.5 MG INJ IV (10:00)
[2024-10-20 10:12] LABS: Alanine Aminotransferase 28 IU/L (<35); Albumin 4.5 g/dL (3.5-5.0); Albumin Globulin Ratio 1.7 (1.0-2.8); Alkaline Phosphatase 59 U/L (38-126); Aspartate Aminotransferase 36 IU/L (14-36); BUN Creatinine Ratio 24.3 (6-22); Bilirubin Total 0.9 mg/dL (0.2-1.3); Blood Urea Nitrogen 18 mg/dL (7-17); Calcium 9.3 mg/dL (8.4-10.2); Carbon Dioxide 16 mmol/L (22-32); Chloride 103 mmol/L (98-107); Estimated Glomerular Filt Rate > 60 mL/min (>60); Globulin 2.6 g/dL (1.7-4.1); Glucose 94 mg/dL (70-99); HEMOLYSIS 16 (0-50); Potassium 3.7 mmol/L (3.4-5.1); Sodium 134 mmol/L (137-145); Total Protein 7.1 g/dL (6.3-8.2)
[2024-10-20 10:19] LABS: Ictotest Urine Negative (Negative); RBC Urine 1-5/HPF (0-5/HPF); Urine Volume 10mL (spun)
[2024-10-20 10:20] LABS: Bacteria Urine Many (>30); Culture Indicated Urine Specimen Cultured; Squamous Epithelial Cell Urine 0-1 /HPF (0-5/HPF); WBC Urine 10-30/HPF (0-5/HPF)
--- NOTE | 2024-10-20 10:23 | PC.NURSE ---
Pt with history of bladder sling, hysterectomy, tummy tuck reports unable to urinate since last night at 2200 with severe abdominal discomfort and nausea. Bladder scan performed at bedside with 462cc. Notified Dr. montoya and catheter placed.
--- NOTE | 2024-10-20 11:27 | ED_ITS ---
HPI - Female Genitourinary General Chief complaint: Urogenital-Female Stated complaint: can't pee since last night Time Seen by Provider: 10/20/24 09:39 History of Present Illness HPI Narrative: Patient is an 59-year-old female history of urinary retention bladder sling presents today with inability to urinate. She reports that she had a normal day yesterday she tried to urinate about 10:00 p.m. 10 quite do it. Had increasing pain throughout the night. Plata catheter is now been placed she was had about over a L out. However still extremely uncomfortable. Denies any fever chills nausea or vomiting. She reports intense cramping that comes and goes. Denies any kind of flank pain or back pain. She was previously seen here in May thought to have UTI had 2 CTs during her visits in May. He says this does not quite feel the same. Related Data Previous Rx's Medication Instructions Recorded cephalexin 500 mg capsule 500 mg PO BID 7 days #14 caps 10/20/24 Allergies Allergy/AdvReac Type Severity Reaction Status Date / Time No Known Drug Allergies Allergy Verified 06/07/24 10:14 Patient History Medical History (Updated 10/20/24 @ 14:09 by My Hines DO) Acute appendicitis without peritonitis Urinary tract infection Surgical History Status post laparoscopic supracervical hysterectomy (05/09/16) Status post endometrial ablation History of third molar tooth extraction Exam Initial Vital Signs Initial Vital Signs: Vital Signs Pulse Rate 104 H 10/20/24 09:29 Blood Pressure 163/91 H 10/20/24 09:29 Pulse Oximetry 100 10/20/24 09:29 GENERAL: Alert 59-year-old female appears very uncommon and in no acute distress. HEENT: Head atraumatic,EOMI, pupils reactive, face symmetric, moist mucous membranes CARDIOVASCULAR: Regular rate and rhythm without murmurs, rubs or gallops. RESPIRATORY: Breath sounds equal bilaterally, no wheezes rales or rhonchi. ABDOMEN: Soft, mild suprapubic pain no guarding no rebound no significant distress : Plata catheter in place no significant flank pain EXTREMITIES: Normal range of motion, no clubbing or edema. Neurovascularly intact NEUROLOGICAL: Alert and oriented x4.Normal gait and speech. Cranial nerves II through XII grossly intact. SKIN: Warm, dry, no laceration, no petechiae, no rashes or lesions. Course Orders Ordered: ED Orders 10/20/24 09:43 Ictotest Urine Stat UA Complete [Urinalysis and Microscopic] Stat Urine Culture Stat 10/20/24 09:50 CBC Auto Diff [Complete Blood Count AUTO DIFF] Stat CMP [Comprehensive Metabolic Panel] Stat 10/20/24 11:33 CT abdomen pelvis w con Stat Discontinued Medications Diphenhydramine HCl (Diphenhydramine 25 Mg Tablet) 25 mg PO NOW ONE Stop: 10/20/24 12:04 Last Admin: 10/20/24 12:08 Dose: 25 mg Documented By: TOY Hydromorphone HCl (Hydromorphone 0.5 Mg Inj) 0.5 mg IV NOW ONE Stop: 10/20/24 09:46 Last Admin: 10/20/24 10:00 Dose: 0.5 mg Documented By: YAYO Hydromorphone HCl (Hydromorphone 1 Mg Inj) 1 mg IV NOW ONE Stop: 10/20/24 11:34 Last Admin: 10/20/24 11:56 Dose: 1 mg Documented By: JASWANT Ketorolac Tromethamine (Ketorolac 30 Mg/Ml Vial) 15 mg IV NOW ONE Stop: 10/20/24 11:34 Last Admin: 10/20/24 11:55 Dose: 15 mg Documented By: JASWANT Ondansetron HCl (Ondansetron 4 Mg/2 Ml Inj) 4 mg IV NOW ONE Stop: 10/20/24 09:56 Last Admin: 10/20/24 09:58 Dose: 4 mg Documented By: YAYO Vital Signs Vital signs: Vital Signs - 8 hr 10/20/24 09:29 10/20/24 09:29 10/20/24 09:30 Temperature Pulse Rate 104 H 107 H Respiratory Rate Blood Pressure 163/91 H Pulse Oximetry 100 100 Oxygen Delivery Method 10/20/24 09:32 10/20/24 09:46 10/20/24 10:00 Temperature 98.5 F Pulse Rate 108 H 112 H Respiratory Rate 20 Blood Pressure 163/91 H 133/83 Pulse Oximetry 100 98 Oxygen Delivery Method Room Air 10/20/24 10:01 10/20/24 10:30 10/20/24 10:30 Temperature Pulse Rate 102 H 102 H Respiratory Rate Blood Pressure 131/71 Pulse Oximetry 100 100 Oxygen Delivery Method 10/20/24 11:00 10/20/24 11:00 10/20/24 11:30 Temperature Pulse Rate 101 H 111 H Respiratory Rate Blood Pressure 125/75 Pulse Oximetry 100 Oxygen Delivery Method 10/20/24 11:31 10/20/24 11:31 10/20/24 12:00 Temperature Pulse Rate 112 H 107 H Respiratory Rate Blood Pressure 138/74 Pulse Oximetry 93 99 Oxygen Delivery Method Room Air Room Air 10/20/24 12:00 10/20/24 12:30 10/20/24 13:00 Temperature Pulse Rate 97 H 101 H Respiratory Rate Blood Pressure 140/69 Pulse Oximetry 100 100 Oxygen Delivery Method Room Air Room Air 10/20/24 13:30 10/20/24 14:00 Temperature Pulse Rate 105 H 108 H Respiratory Rate Blood Pressure Pulse Oximetry 96 100 Oxygen Delivery Method Room Air MDM - Female Genitourinary Lab Data 10/20/24 09:50 10/20/24 09:50 Labs: Lab Results 10/20/24 10/20/24 Range/Units 09:43 09:50 WBC 14.4 H (4.5-11.0) X10^3/uL RBC 4.22 (4.0-5.2) X10^6/uL Hgb 12.6 (12.0-16.0) g/dL Hct 37.9 (36-46) % MCV 89.9 (80-100) fL MCH 29.9 (26-34) PG MCHC 33.2 (30-36) % RDW 13.9 (11.6-14.8) % Plt Count 339 (150-400) X10^3/uL Neut % (Auto) 85.7 H (50-75) % Lymph % (Auto) 7.1 L (25-40) % [place] % (Auto) 6.6 (3-14) % Eos % (Auto) 0.2 L (2-4) % Baso % (Auto) 0.4 (0-2) % Neut # (Auto) 31747 H (9767-5003) /uL Lymph # (Auto) 1000 L (5515-6558) /uL [place] # (Auto) 1000 H (0-900) /uL Eos # (Auto) 0 (0-450) /uL Baso # (Auto) 100 (0-100) /uL Sodium 134 L (137-145) mmol/L Potassium 3.7 (3.4-5.1) mmol/L Chloride 103 (98-107) mmol/L Carbon Dioxide 16 L (22-32) mmol/L BUN 18 H (7-17) mg/dL Creatinine 0.74 (0.52-1.04) mg/dL Estimated GFR > 60 (>60) mL/min BUN/Creatinine Ratio 24.3 H (6-22) Glucose 94 (70-99) mg/dL Calcium 9.3 (8.4-10.2) mg/dL Total Bilirubin 0.9 (0.2-1.3) mg/dL AST 36 (14-36) IU/L ALT 28 (<35) IU/L Alkaline Phosphatase 59 (38-126) U/L Total Protein 7.1 (6.3-8.2) g/dL Albumin 4.5 (3.5-5.0) g/dL Globulin 2.6 (1.7-4.1) g/dL Albumin/Globulin Ratio 1.7 (1.0-2.8) Urine Color Yellow Urine Appearance Sl cloudy Urine pH 6.0 (4.5-8.0) Ur Specific [place] 1.020 (1.000-1.035) Urine Protein Negative (Negative) Urine Glucose (UA) Negative (Negative) g/dL Urine Ketones Trace H (NEGATIVE) Urine Occult Blood Negative (Negative) Urine Nitrate Negative (Negative) Urine Bilirubin 1+ H (NEGATIVE) Ur Bilirubin Confirm Negative (Negative) Urine Urobilinogen 1.0 (0.2) E.U./dL Ur Leukocyte Esterase 1+ H (NEGATIVE) Urine RBC 1-5/hpf (0-5/HPF) Urine WBC 10-30/hpf H (0-5/HPF) Ur Squamous Epith Cells 0-1 /hpf (0-5/HPF) Urine Bacteria Many (>30) H (None) Ur Culture Indicated? Specimen cultured Vol Urine Centrifuged 10ml (spun) Imaging Data CT scan - abdomen/pelvis: Radiologist's Impression: PROCEDURE: CT ABDOMEN PELVIS W CON INDICATIONS: urinary retention. plata still having pain TECHNIQUE: After the administration of intravenous contrast, axial sections acquired from the lung bases to the pubic symphysis. Coronal and sagittal reformats were performed. For radiation dose reduction, the following was used: automated exposure control, adjustment of mA and/or kV according to patient size. COMPARISON: [facility], CT, CT ABDOMEN PELVIS W CON, 06/07/2024, 11:14. FINDINGS: Image quality: Diagnostic. Lower Chest: No significant findings. ABDOMEN: Liver: No solid mass. Gallbladder: No radiopaque gallstones or wall thickening. Biliary ducts: No biliary dilation. Pancreas: No ductal dilation. Spleen: Size is within normal limits. Adrenal Glands: No adrenal nodules. Kidneys and Ureters: No hydronephrosis. No solid mass. No complex renal cystic lesion which requires follow up. Stomach and Bowel: Normal colonic caliber, without significant wall thickening. Large volume stool throughout the colon. Peritoneum: No abnormal intraperitoneal fluid. No free air. Ventral Wall: No significant ventral hernia. Abdominal Nodes: No retroperitoneal or mesenteric adenopathy by size criteria. Vessels: Aorta and inferior vena cava are normal in size. PELVIS: Pelvic Organs: Unremarkable. Bladder: Plata catheter within the bladder with small volume urine. Pelvic Nodes: No enlarged lymph nodes. Miscellaneous: No inguinal hernias are seen. Bones: No aggressive osseous abnormality. IMPRESSION: Large stool volume. Low volume if urine within the bladder. Dictated by: Osmin Ulrich M.D. on 10/20/2024 at 11:54 MDM Narrative Medical decision making narrative: Patient is a 59-year-old female presenting to day with acute urinary retention. She has a UTIs and urinary retention in the past. Upon further questioning she actually states that she recently started tropium about 1 week ago for overactive bladder. Side effects of this medication include urinary retention constipation UTI and other Plata catheter placed with over 1 L out. Continues to be in pretty severe pain. She has been given Toradol and Dilaudid. Blood Work has been reviewed WBC 14.4 no significant left shift CMP no SWETA bicarb is 16 BUN 18 creatinine 0.7 UA does have bacteria no nitrates or leukocytes CT shows constipation large stool volume At this time patient does have significant urinary retention. It was likely secondary to new medication which can have an adverse side effect of urinary retention and UTI along with constipation. Plata catheter will remain in place. She was have leukocytosis of 14.4 with some WBCs and bacteria in her urine. No evidence of sepsis. Pain is much better controlled now. At this time we will keep Plata catheter in place stop taking the medication and treat her for UTI. Discharge Plan Departure Patient Disposition: Home Clinical Impression: Urinary tract infection, Adverse drug effect Instructions: DI for Urinary Tract Infection (UTI), How to Care for Your Plata Catheter -- Female, DI for Urinary Retention in Women Activity Restrictions/Additional Instructions: *You have been diagnosed with drug reaction, UTI *What to do: At this time urinary retention is likely caused from medication tropsium. Please stop taking this medication and tonsil your provider. You were also found to have bladder infection Please consult primary care I would leave Plata catheter in for anywhere from 3- 7 days. *Continue to take medications as directed Keflex 500 mg twice a day for 7 days STOP TAKING Tropsium *Follow up with your primary care provider in 2-3 days or call [phone] *Return to ER if you should have increasing abdominal pain nausea vomiting fever chills or any new, worsening or concerning symptoms Prescriptions: New cephalexin 500 mg capsule 500 mg PO BID 7 Days Qty: 14 0RF Stand Alone Forms: Patient Portal/API/Survey
--- NOTE | 2024-10-20 11:33 | DI.CT.S_ITS ---
PROCEDURE: CT ABDOMEN PELVIS W CON INDICATIONS: urinary retention. plata still having pain TECHNIQUE: After the administration of intravenous contrast, axial sections acquired from the lung bases to the pubic symphysis. Coronal and sagittal reformats were performed. For radiation dose reduction, the following was used: automated exposure control, adjustment of mA and/or kV according to patient size. COMPARISON: [facility], CT, CT ABDOMEN PELVIS W CON, 06/07/2024, 11:14. FINDINGS: Image quality: Diagnostic. Lower Chest: No significant findings. ABDOMEN: Liver: No solid mass. Gallbladder: No radiopaque gallstones or wall thickening. Biliary ducts: No biliary dilation. Pancreas: No ductal dilation. Spleen: Size is within normal limits. Adrenal Glands: No adrenal nodules. Kidneys and Ureters: No hydronephrosis. No solid mass. No complex renal cystic lesion which requires follow up. Stomach and Bowel: Normal colonic caliber, without significant wall thickening. Large volume stool throughout the colon. Peritoneum: No abnormal intraperitoneal fluid. No free air. Ventral Wall: No significant ventral hernia. Abdominal Nodes: No retroperitoneal or mesenteric adenopathy by size criteria. Vessels: Aorta and inferior vena cava are normal in size. PELVIS: Pelvic Organs: Unremarkable. Bladder: Plata catheter within the bladder with small volume urine. Pelvic Nodes: No enlarged lymph nodes. Miscellaneous: No inguinal hernias are seen. Bones: No aggressive osseous abnormality. IMPRESSION: Large stool volume. Low volume if urine within the bladder. Dictated by: Osmin Ulrich M.D. on 10/20/2024 at 11:54 Approved by: Osmin Ulrich M.D. on 10/20/2024 at 12:04
[2024-10-20] MEDS: KETOROLAC 30 MG/ML VIAL 15 MG IV (11:55)
[2024-10-20] MEDS: HYDROMORPHONE 1 MG INJ IV (11:56)
[2024-10-20] MEDS: diphenhydrAMINE 25 MG TABLET PO (12:08)
== END 2024-10-20 14:30 | disposition home or self-care (01) ==
PROVIDERS: Emergency Provider Emergency Medicine
DX: N39.0 Urinary tract infection, site not specified (principal); R33.9 Retention of urine, unspecified; T44.3X5A Adverse effect of other parasympatholytics [anticholinergics and antimuscarinics] and spasmolytics, initial encounter
CPT/HCPCS: 36415; 51702; 74177; 80053; 81001; 85025; 87077; 87086; 87186; 96374; 96375; 96376; 99284; J1171; J1885; J2405; Q9967